=== PATIENT | female | born 1985 | race Caucasian/White ===

== ENCOUNTER 2016-11-22 15:24 | Inpatient (IN) | payer BC, OTHER ==
[~2016-11-22] VITALS: Ht 165.1 cm; Wt 95.0 kg
[~2016-11-22 15:24] MED LIST: CHOL10003 PO; RANI150T4 PO
[2016-11-25] MEDS ORDERED: OXYTOCIN 30U/ 0.9% NaCL 500ML 500 ML IV PRN (15:30)
[2016-11-25] MEDS ORDERED: FENTANYL PF 100 MCG/2ML IVPush PRN (15:30)
[2016-11-25] MEDS ORDERED: OXYTOCIN 30U/ 0.9% NaCL 500ML 500 ML IV ONE (15:30)
[2016-11-25] MEDS ORDERED: D5%-LACTATED RINGERS 1,000 ML IV SCH (15:30)
[2016-11-25] MEDS ORDERED: PLEASE ENTER HEIGHT AND WEIGHT MC SCH (16:00)
[2016-11-25] MEDS ORDERED: NEWBORN KIT ONE (16:07)
[2016-11-25] MEDS ORDERED: OXYTOCIN 30U/ 0.9% NaCL 500ML 500 ML ONE (16:08)
[2016-11-25] MEDS: LACTATED RINGERS 1,000 ML IV SCH ×4 (16:22→20:38)
[2016-11-25 16:42] VITALS: BP 137/84
[2016-11-25] MEDS ORDERED: FENTANYL/BUPIV./NS/PF 250 ML EPIDCONT ONE (17:39)
[2016-11-25] MEDS ORDERED: FENTANYL PF 100 MCG/2ML ONE (17:39)
[2016-11-25] MEDS ORDERED: BUPIVACAINE 0.25% ONE (17:40)
[2016-11-25] MEDS ORDERED: TERBUTALINE 1 MG/ML, 1ML ONE (19:28)
[2016-11-25] MEDS ORDERED: EPHEDRINE 50 MG/ML, 1ML ONE (19:29)
[2016-11-25] MEDS ORDERED: LACTATED RINGERS 1,000 ML INTUTE SCH (21:00)
[2016-11-25] MEDS ORDERED: LACTATED RINGERS 1,000 ML INTUTE PRN (21:00)
[2016-11-25] MEDS ORDERED: FENTANYL/BUPIV./NS/PF 250 ML EPIDCONT SCH (23:45)
[2016-11-26] MEDS ORDERED: LACTATED RINGERS 1,000 ML IVBOLUS PRN
[2016-11-26] MEDS ORDERED: ONDANSETRON 2MG/ML, 2ML ONE (00:46)
[2016-11-26] MEDS ORDERED: ONDANSETRON 2MG/ML, 2ML IVPush PRN (01:00)
[2016-11-26] MEDS ORDERED: OXYTOCIN 30U/ 0.9% NaCL 500ML 500 ML ONE (01:57)
[2016-11-26] MEDS ORDERED: MAGNESIUM HYDROXIDE 8%, 30ML UDC PO PRN (02:00)
[2016-11-26] MEDS ORDERED: RHOGAM FROM BLOOD BANK 1 NOTE EA IM/IV ONE (02:00)
[2016-11-26] MEDS ORDERED: MEASLES,MUMPS&RUBELLA VACC/PF 0.5 ML SQ PRN (02:00)
[2016-11-26] MEDS ORDERED: ONDANSETRON 2MG/ML, 2ML IV PRN (02:00)
[2016-11-26] MEDS ORDERED: ACETAMINOPHEN 325 MG TABLET PO PRN ×2 (02:00)
[2016-11-26] MEDS ORDERED: OXYcodone/APAP 5/325MG TABLET PO PRN (02:00)
[2016-11-26] MEDS ORDERED: MISOPROSTOL 200 MCG TABLET PR PRN (02:00)
[2016-11-26] MEDS ORDERED: CALCIUM CARBONATE 500 MG TAB.CHEW PO PRN (02:00)
[2016-11-26] MEDS ORDERED: DIPH,PERTUSS(ACELL),TET VAC/PF NC IM-VACC PRN (02:00)
[2016-11-26] MEDS: OXYTOCIN 30U/ 0.9% NaCL 500ML 500 ML IV SCH ×3 (02:02→20:56)
[2016-11-26] MEDS: LACTATED RINGERS 1,000 ML IV SCH ×4 (02:03→23:45)
[2016-11-26] MEDS ORDERED: IBUPROFEN 600 MG TABLET ONE (02:11)
[2016-11-26] MEDS: IBUPROFEN 600 MG TABLET PO PRN ×4 (03:07→23:20)
[2016-11-26 03:45] VITALS: BP 130/82
[2016-11-26 07:54] VITALS: BP 130/86
[2016-11-26] MEDS ORDERED: PRENATAL VIT/IRON/FA 1 EACH TABLET PO SCH (09:00)
[2016-11-26] MEDS: DOCUSATE 100 MG CAPSULE PO PRN ×2 (10:01→23:19)
[2016-11-26] MEDS: OXYcodone/APAP 5/325MG TABLET PO PRN ×3 (10:01→23:20)
[2016-11-26 11:18] VITALS: BP 129/84
[2016-11-26 15:45] VITALS: BP 128/84
[2016-11-26 19:50] VITALS: BP 123/83
[2016-11-27] MEDS: LACTATED RINGERS 1,000 ML IV SCH (00:17)
[2016-11-27 00:30] VITALS: BP 129/88
[2016-11-27] MEDS ORDERED: OXYC-302 PO (05:15)
[2016-11-27] MEDS ORDERED: IBUP-1222 PO (05:16)
[2016-11-27 08:00] VITALS: BP 136/95
== END 2016-11-27 10:28 | disposition home or self-care (01) | DRG 775 ==
LOC: LDIP 11-25 15:02 → 2NW 11-26 03:45
PROVIDERS: ADMIT Obstetrics & Gynecology; ATTEND Obstetrics & Gynecology
PROC: 10E0XZZ Delivery of Products of Conception, External Approach (ICD-10-PCS; principal; 2016-11-26)
PROC: 10907ZC Drainage of Amniotic Fluid, Therapeutic from Products of Conception, Via Natural or Artificial Opening (ICD-10-PCS; 2016-11-26)
PROC: 0HQ9XZZ Repair Perineum Skin, External Approach (ICD-10-PCS; 2016-11-26)
PROC: 3E0R3CZ (ICD-10-PCS; 2016-11-26)
PROC: 00HU33Z Insertion of Infusion Device into Spinal Canal, Percutaneous Approach (ICD-10-PCS; 2016-11-26)
PROC: 3E0E7GC Introduction of Other Therapeutic Substance into Products of Conception, Via Natural or Artificial Opening (ICD-10-PCS; 2016-11-26)
PROC: 3E033VJ Introduction of Other Hormone into Peripheral Vein, Percutaneous Approach (ICD-10-PCS; 2016-11-26)
DX: O76 Abnormality in fetal heart rate and rhythm complicating labor and delivery (principal); O69.1XX0 Labor and delivery complicated by cord around neck, with compression, not applicable or unspecified; O26.53 Maternal hypotension syndrome, third trimester; Z3A.39 39 weeks gestation of pregnancy; Z37.0 Single live birth; O70.0 First degree perineal laceration during delivery
CPT/HCPCS: 36415; 82803; 85025; 86850; 86900; J2405; J2590; J3010; J7120; J7121

== ENCOUNTER 2018-11-19 14:36 | Outpatient (CLI) | payer OTHER ==
[~2018-11-19] VITALS: Ht 165.1 cm; Wt 97.7 kg
[~2018-11-19 14:36] MED LIST changes: +IBUP-1222 PO; +OXYC-302 PO
[2018-11-19 14:51] VITALS: BP 118/81
[2018-11-19 15:19] LABS: BASOPHILS # (AUTO) 0.01 x10^3/uL (0-0.1); BASOPHILS % (AUTO) 0 % (0-1); EOSINOPHILS # (AUTO) 0.04 x10^3/uL (0-0.4); EOSINOPHILS % (AUTO) 1 % (1-7); LYMPHOCYTES % (AUTO) 17 % (22-44); MD NO; MEAN CORPUSCULAR HEMOGLOBIN 26.9 pg (27.0-34.8); MEAN CORPUSCULAR VOLUME 81.8 fL (80-100); MEAN PLATELET VOLUME 8.4 fL (7.4-10.4); MONOCYTES # (AUTO) 0.28 x10^3/uL (0.2-0.8); MONOCYTES % (AUTO) 6 % (2-9); NEUTROPHILS # (AUTO) 3.46 x10^3/uL (1.8-6.8); NEUTROPHILS % (AUTO) 75 % (42-75); PLATELET COUNT 210 x10^3/uL (130-400); RED BLOOD COUNT 4.49 x10^6/uL (3.82-5.3); RED CELL DISTRIBUTION WIDTH 14.2 % (9.6-15.2)
[2018-11-19 15:22] LABS: MICROSCOPIC INDICATED
[2018-11-19 15:30] LABS: ALANINE AMINOTRANSFERASE 13 U/L (12-78); ALBUMIN 2.8 g/dL (3.4-5.0); ANION GAP 8 mmol/L (5-15); CHLORIDE 110 mmol/L (98-107); CREATININE 0.69 mg/dL (0.55-1.02)
[2018-11-19 15:32] LABS: ALKALINE PHOSPHATASE 98 U/L (45-117); BILIRUBIN,TOTAL 0.4 mg/dL (0.2-1.0)
== END 2018-11-19 17:08 | disposition home or self-care (01) ==
LOC: LDOP 14:36
PROVIDERS: ATTEND Obstetrics & Gynecology
DX: O13.3 Gestational [pregnancy-induced] hypertension without significant proteinuria, third trimester (principal); Z3A.36 36 weeks gestation of pregnancy
CPT/HCPCS: 36415; 59025; 80053; 81001; 82570; 84156; 84550; 85025; G0463

== ENCOUNTER 2018-11-21 02:31 | Observation (INO) | payer OTHER ==
[~2018-11-21] VITALS: Ht 165.1 cm; Wt 98.0 kg
[2018-11-21] MEDS ORDERED: LACTATED RINGERS 1,000 ML IV SCH ×3 (02:49→06:49)
[2018-11-21] MEDS ORDERED: OXYTOCIN 30U/ 0.9% NaCL 500ML 500 ML ONE ×2 (02:49→06:22)
[2018-11-21] MEDS ORDERED: OXYTOCIN 30U/ 0.9% NaCL 500ML 500 ML IV ONE (02:49)
[2018-11-21] MEDS ORDERED: D5%-LACTATED RINGERS 1,000 ML IV SCH (02:49)
[2018-11-21] MEDS ORDERED: NEWBORN KIT ONE (02:50)
[2018-11-21] MEDS ORDERED: MISOPROSTOL 200 MCG TABLET ONE (02:50)
[2018-11-21] MEDS ORDERED: LIDOCAINE 1%, 20ML ONE (02:50)
[2018-11-21] MEDS ORDERED: ONDANSETRON 2MG/ML, 2ML IVPush PRN (03:00)
[2018-11-21] MEDS ORDERED: FENTANYL PF 100 MCG/2ML IVPush PRN (03:00)
[2018-11-21] MEDS ORDERED: FENTANYL PF 100 MCG/2ML IV PRN (03:00)
[2018-11-21] MEDS ORDERED: CALCIUM CARBONATE 500 MG TAB.CHEW PO PRN (03:00)
[2018-11-21] MEDS ORDERED: TERBUTALINE 1 MG/ML, 1ML IVPush PRN (03:00)
[2018-11-21] MEDS ORDERED: FENTANYL/BUPIV./NS/PF 250 ML EPIDCONT SCH (03:04)
[2018-11-21] MEDS ORDERED: FENTANYL PF 100 MCG/2ML ONE (03:06)
[2018-11-21] MEDS ORDERED: BUPIVACAINE 0.25% ONE (03:21)
[2018-11-21 03:27] LABS: BASOPHILS # (AUTO) 0.02 x10^3/uL (0-0.1); BASOPHILS % (AUTO) 0 % (0-1); EOSINOPHILS # (AUTO) 0.05 x10^3/uL (0-0.4); EOSINOPHILS % (AUTO) 1 % (1-7); LYMPHOCYTES # (AUTO) 1.35 x10^3/uL (1-3.4); LYMPHOCYTES % (AUTO) 28 % (22-44); MD NO; MEAN CORPUSCULAR HEMOGLOBIN 27.7 pg (27.0-34.8); MEAN CORPUSCULAR HGB CONC 33.9 g/dL (32.4-35.8); MEAN CORPUSCULAR VOLUME 81.7 fL (80-100); MEAN PLATELET VOLUME 8.9 fL (7.4-10.4); MONOCYTES # (AUTO) 0.32 x10^3/uL (0.2-0.8); MONOCYTES % (AUTO) 7 % (2-9); NEUTROPHILS # (AUTO) 3.11 x10^3/uL (1.8-6.8); NEUTROPHILS % (AUTO) 64 % (42-75); PLATELET COUNT 213 x10^3/uL (130-400); RED BLOOD COUNT 4.68 x10^6/uL (3.82-5.3); RED CELL DISTRIBUTION WIDTH 14.5 % (9.6-15.2)
[2018-11-21] MEDS ORDERED: FENTANYL PF 500 MCG, BUPIVACAINE/PF 0.5%, 30ML 62.5 ML in SODIUM CHLORIDE 0.9% 177.5 ML EPIDCONT SCH (03:30)
[2018-11-21] MEDS ORDERED: EPHEDRINE 50 MG/ML, 1ML IVPush PRN (03:30)
[2018-11-21] MEDS ORDERED: LACTATED RINGERS 1,000 ML IVBOLUS PRN (03:30)
[2018-11-21 04:13] LABS: CHLORIDE 112 mmol/L (98-107)
[2018-11-21 04:20] LABS: ALANINE AMINOTRANSFERASE 15 U/L (12-78); ALBUMIN 2.8 g/dL (3.4-5.0); ALKALINE PHOSPHATASE 104 U/L (45-117); ANION GAP 9 mmol/L (5-15); BILIRUBIN,TOTAL 0.4 mg/dL (0.2-1.0); CALCIUM 8.4 mg/dL (8.5-10.1); CREATININE 0.66 mg/dL (0.55-1.02); TOTAL PROTEIN 7.1 g/dL (6.4-8.2)
[2018-11-21] MEDS: OXYTOCIN 30U/ 0.9% NaCL 500ML 500 ML IV SCH ×2 (06:49→16:49)
[2018-11-21] MEDS: LACTATED RINGERS 1,000 ML IV SCH ×2 (06:49→17:15)
[2018-11-21] MEDS ORDERED: MISOPROSTOL 200 MCG TABLET PR PRN (07:00)
[2018-11-21] MEDS ORDERED: BISACODYL 10 MG SUPP PR PRN (07:00)
[2018-11-21] MEDS ORDERED: ONDANSETRON 2MG/ML, 2ML IV PRN (07:00)
[2018-11-21] MEDS ORDERED: OXYcodone/APAP 5/325MG TABLET PO PRN (07:00)
[2018-11-21] MEDS ORDERED: ACETAMINOPHEN 325 MG TABLET PO PRN (07:00)
[2018-11-21 08:20] VITALS: BP 122/63
[2018-11-21] MEDS: PRENATAL VIT/IRON/FA 1 EACH TABLET PO SCH (09:00)
[2018-11-21] MEDS: OXYcodone/APAP 5/325MG TABLET PO PRN ×3 (12:24→21:33)
[2018-11-21] MEDS: IBUPROFEN 600 MG TABLET PO PRN ×2 (12:24→20:40)
[2018-11-21 14:03] VITALS: BP 125/82
[2018-11-21 19:15] VITALS: BP 131/86
[2018-11-21] MEDS: DOCUSATE 100 MG CAPSULE PO PRN (20:40)
[2018-11-21 22:02] LABS: BASOPHILS # (AUTO) 0.04 x10^3/uL (0-0.1); BASOPHILS % (AUTO) 1 % (0-1); EOSINOPHILS # (AUTO) 0.06 x10^3/uL (0-0.4); EOSINOPHILS % (AUTO) 1 % (1-7); LYMPHOCYTES # (AUTO) 1.44 x10^3/uL (1-3.4); LYMPHOCYTES % (AUTO) 24 % (22-44); MD NO; MEAN CORPUSCULAR HEMOGLOBIN 27.9 pg (27.0-34.8); MEAN CORPUSCULAR HGB CONC 33.9 g/dL (32.4-35.8); MEAN CORPUSCULAR VOLUME 82.3 fL (80-100); MEAN PLATELET VOLUME 8.5 fL (7.4-10.4); MONOCYTES # (AUTO) 0.38 x10^3/uL (0.2-0.8); MONOCYTES % (AUTO) 6 % (2-9); NEUTROPHILS # (AUTO) 4.22 x10^3/uL (1.8-6.8); NEUTROPHILS % (AUTO) 69 % (42-75); PLATELET COUNT 184 x10^3/uL (130-400); RED BLOOD COUNT 3.79 x10^6/uL (3.82-5.3); RED CELL DISTRIBUTION WIDTH 14.3 % (9.6-15.2)
[2018-11-22] VITALS: BP 128/87
[2018-11-22] MEDS: LACTATED RINGERS 1,000 ML IV SCH ×2 (02:49→12:49)
[2018-11-22] MEDS: OXYTOCIN 30U/ 0.9% NaCL 500ML 500 ML IV SCH ×2 (02:49→12:49)
[2018-11-22 03:48] VITALS: BP 122/85
[2018-11-22 08:45] VITALS: BP 127/89
[2018-11-22] MEDS: IBUPROFEN 600 MG TABLET PO PRN ×2 (08:58→18:37)
[2018-11-22] MEDS: DOCUSATE 100 MG CAPSULE PO PRN (08:58)
[2018-11-22] MEDS: OXYcodone/APAP 5/325MG TABLET PO PRN ×3 (08:58→18:37)
[2018-11-22] MEDS: PRENATAL VIT/IRON/FA 1 EACH TABLET PO SCH (09:00)
[2018-11-22] MEDS ORDERED: IBUP-1222 PO (10:47)
[2018-11-22] MEDS ORDERED: OXYC-302 PO (10:47)
== END 2018-11-22 18:55 | disposition home or self-care (01) ==
LOC: LDOP 02:31 → INTOOBSV 02:55 → LDIP 02:55 → 2NW 08:12
PROVIDERS: ADMIT Obstetrics & Gynecology; ATTEND Obstetrics & Gynecology
DX: O60.14X0 Preterm labor third trimester with preterm delivery third trimester, not applicable or unspecified (principal); Z37.0 Single live birth; O13.4 Gestational [pregnancy-induced] hypertension without significant proteinuria, complicating childbirth; O62.3 Precipitate labor; Z3A.36 36 weeks gestation of pregnancy
CPT/HCPCS: 36415; 59409; 80053; 82803; 84550; 85025; 86850; 86900; 96365; 96366; 96375; G0378; J2590; J3010; J7120; J7121

== ENCOUNTER 2020-09-04 10:05 | Outpatient (CLI) | payer OTHER ==
[~2020-09-04] VITALS: Ht 165.1 cm; Wt 97.7 kg
[~2020-09-04 10:05] MED LIST changes: -OXYC-302 PO; +OXYC1TAB14 PO
[2020-09-04 10:14] VITALS: BP 104/73
== END 2020-09-04 10:45 | disposition home or self-care (01) ==
LOC: LDOP 10:05
PROVIDERS: ATTEND Obstetrics & Gynecology
DX: Z34.93 Encounter for supervision of normal pregnancy, unspecified, third trimester (principal); Z3A.34 34 weeks gestation of pregnancy
CPT/HCPCS: 59025; 99211; G0463

== ENCOUNTER → 2020-09-21 | Outpatient (CLI) | payer SELFPAY | END | disposition home or self-care (01) | LOC: COVVAC 10:38 | PROVIDERS: ATTEND Obstetrics & Gynecology | DX: Z20.822 Contact with and (suspected) exposure to COVID-19 (principal) | CPT/HCPCS: U0003 ==

== ENCOUNTER 2020-09-23 14:50 | Inpatient (IN) | payer OTHER ==
[~2020-09-23] VITALS: Ht 165.1 cm; Wt 99.0 kg
[2020-09-24] MEDS ORDERED: ALUMINUM/MAG/SIMETHICONE 30 ML UDC PO PRN (22:30)
[2020-09-24] MEDS ORDERED: SODIUM CHLORIDE FLUSH 10ML SYR IVF PRN (22:30)
[2020-09-24] MEDS ORDERED: TERBUTALINE 1 MG/ML, 1ML IVPush PRN (22:30)
[2020-09-24] MEDS ORDERED: FENTANYL PF 100 MCG/2ML IVPush PRN (22:30)
[2020-09-24] MEDS ORDERED: FENTANYL PF 100 MCG/2ML IV PRN (22:30)
[2020-09-24] MEDS ORDERED: D5%-LACTATED RINGERS 1,000 ML IV SCH (22:30)
[2020-09-24] MEDS ORDERED: TERBUTALINE 1 MG/ML, 1ML SQ PRN (22:30)
[2020-09-24] MEDS ORDERED: PLEASE ENTER HEIGHT AND WEIGHT MC SCH (22:30)
[2020-09-24] MEDS ORDERED: MISOPROSTOL 25 MCG TABLET PO PRN (22:30)
[2020-09-24] MEDS ORDERED: MISOPROSTOL 25 MCG TABLET VG PRN ×2 (22:30)
[2020-09-24] MEDS ORDERED: OXYTOCIN 30U/ 0.9% NaCL 500ML 500 ML IV PRN (22:30)
[2020-09-24] MEDS ORDERED: OXYTOCIN 30U/ 0.9% NaCL 500ML 500 ML IV ONE (22:30)
[2020-09-24] MEDS ORDERED: SODIUM CITRATE/CITRIC ACID 30 ML UDC PO PRN (22:30)
[2020-09-24] MEDS ORDERED: ONDANSETRON 2MG/ML, 2ML IVPush PRN (22:30)
[2020-09-24] MEDS ORDERED: METOCLOPRAMIDE 5 MG/ML, 2ML IVPush PRN (22:30)
[2020-09-24 23:07] LABS: BASOPHILS % (AUTO) 1 % (0-1); EOSINOPHILS % (AUTO) 1 % (1-7); LYMPHOCYTES % (AUTO) 24 % (22-44); MEAN CORPUSCULAR HEMOGLOBIN 24.9 pg (27.0-34.8); MEAN CORPUSCULAR HGB CONC 33.1 g/dL (32.4-35.8); MONOCYTES % (AUTO) 5 % (2-9); NEUTROPHILS % (AUTO) 70 % (42-75); PLATELET COUNT 215 x10^3/uL (130-400); RED BLOOD COUNT 4.48 x10^6/uL (3.82-5.3); RED CELL DISTRIBUTION WIDTH 16.3 % (9.6-15.2)
[2020-09-24 23:10] LABS: MD NO
[2020-09-24 23:13] LABS: ALANINE AMINOTRANSFERASE 13 U/L (12-78); ALBUMIN 2.8 g/dL (3.4-5.0); ANION GAP 8 mmol/L (5-15); CALCIUM 8.7 mg/dL (8.5-10.1); CHLORIDE 110 mmol/L (98-107); CREATININE 0.93 mg/dL (0.55-1.02)
[2020-09-24 23:15] LABS: ALKALINE PHOSPHATASE 103 U/L (45-117); BILIRUBIN, DIRECT < 0.1 mg/dL (0.1-0.2); BILIRUBIN,TOTAL 0.3 mg/dL (0.2-1.0); TOTAL PROTEIN 6.9 g/dL (6.4-8.2)
[2020-09-25] MEDS ORDERED: hydrALAzine 20 MG/ML, 1ML ONE (01:49)
[2020-09-25] MEDS ORDERED: hydrALAzine 20 MG/ML, 1ML IVPush ONE ×2 (02:00)
[2020-09-25] MEDS: LACTATED RINGERS 1,000 ML IVBOLUS PRN ×2 (02:00→03:00)
[2020-09-25] MEDS ORDERED: LABETALOL 5MG/ML, 20ML IVPush ONE (02:00)
[2020-09-25] MEDS ORDERED: BUPIVACAINE 0.25% ONE (02:31)
[2020-09-25] MEDS ORDERED: FENTANYL/BUPIV./NS/PF 250 ML EPIDCONT SCH (03:00)
[2020-09-25] MEDS ORDERED: EPHEDRINE 50 MG/ML, 1ML IVPush PRN (03:00)
[2020-09-25] MEDS ORDERED: OXYTOCIN 30U/ 0.9% NaCL 500ML 500 ML ONE ×2 (03:09→19:43)
[2020-09-25] MEDS ORDERED: MISOPROSTOL 200 MCG TABLET ONE (03:10)
[2020-09-25] MEDS ORDERED: ONDANSETRON 2MG/ML, 2ML ONE (03:22)
[2020-09-25] MEDS: LACTATED RINGERS 1,000 ML IV SCH ×3 (04:07→16:44)
[2020-09-25] MEDS ORDERED: OXYTOCIN 30U/ 0.9% NaCL 500ML 500 ML IV PRN (08:30)
[2020-09-25] MEDS ORDERED: ACETAMINOPHEN 325 MG TABLET ONE ×2 (09:27→16:07)
[2020-09-25] MEDS ORDERED: LIDOCAINE 1%, 20ML ONE (09:27)
[2020-09-25] MEDS: ACETAMINOPHEN 325 MG TABLET PO PRN ×2 (09:30→16:09)
[2020-09-25] MEDS ORDERED: SODIUM CITRATE/CITRIC ACID 15 ML UDC ONE (10:00)
[2020-09-25] MEDS ORDERED: METOCLOPRAMIDE 5 MG/ML, 2ML ONE (10:00)
[2020-09-25] MEDS ORDERED: SODIUM BICARBONATE 1 MEQ/ML, 50ML VIAL ONE (10:11)
[2020-09-25] MEDS ORDERED: LIDOCAINE/MPF 2%-EPI 1:200K, 20 ML ONE (10:11)
[2020-09-25] MEDS ORDERED: CEFAZOLIN 1,000 MG ONE ×2 (10:11)
[2020-09-25] MEDS ORDERED: OXYTOCIN 10 UNITS/ML, 1ML ONE ×4 (10:11)
[2020-09-25] MEDS ORDERED: LACTATED RINGERS 1,000 ML INTUTE PRN (10:30)
[2020-09-25] MEDS ORDERED: LACTATED RINGERS 1,000 ML INTUTE SCH (10:30)
[2020-09-25 12:44] LABS: BASOPHILS % (AUTO) 0 % (0-1); EOSINOPHILS % (AUTO) 0 % (1-7); LYMPHOCYTES % (AUTO) 9 % (22-44); MEAN CORPUSCULAR HEMOGLOBIN 24.7 pg (27.0-34.8); MEAN CORPUSCULAR HGB CONC 32.8 g/dL (32.4-35.8); MEAN PLATELET VOLUME 8.8 fL (7.4-10.4); MONOCYTES % (AUTO) 4 % (2-9); NEUTROPHILS % (AUTO) 88 % (42-75); PLATELET COUNT 207 x10^3/uL (130-400); RED BLOOD COUNT 3.94 x10^6/uL (3.82-5.3); RED CELL DISTRIBUTION WIDTH 16.5 % (9.6-15.2)
[2020-09-25 12:49] LABS: INTERNATIONAL NORMALIZED RATIO 1.07 (0.93-1.1); PROTHROMBIN TIME 11.4 Seconds (9.6-11.5)
[2020-09-25 12:52] LABS: MD NO
[2020-09-25] MEDS ORDERED: ONDANSETRON 2MG/ML, 2ML IV PRN (18:30)
[2020-09-25] MEDS ORDERED: ACETAMINOPHEN 325 MG TABLET PO PRN ×2 (18:30)
[2020-09-25] MEDS ORDERED: MAGNESIUM HYDROXIDE 8%, 30ML UDC PO PRN (18:30)
[2020-09-25] MEDS ORDERED: DIPH,PERTUSS(ACELL),TET VAC/PF NC IM-VACC PRN (18:30)
[2020-09-25] MEDS ORDERED: MISOPROSTOL 200 MCG TABLET PR PRN (18:30)
[2020-09-25] MEDS ORDERED: OXYcodone/APAP 5/325MG TABLET PO PRN (18:30)
[2020-09-25] MEDS ORDERED: SIMETHICONE 80 MG CHEW TAB PO PRN (18:30)
[2020-09-25] MEDS: OXYTOCIN 30U/ 0.9% NaCL 500ML 500 ML IV SCH (18:30)
[2020-09-25] MEDS ORDERED: RHOGAM FROM BLOOD BANK 1 NOTE EA IM/IV ONE (18:30)
[2020-09-25] MEDS ORDERED: DOCUSATE 100 MG CAPSULE PO PRN (18:30)
[2020-09-25] MEDS ORDERED: MAGNESIUM SULFATE PMX 4GM/100M 100 ML IVPB ONE (19:00)
[2020-09-25] MEDS ORDERED: MAGNESIUM SULFATE PMX 4GM/100M 100 ML ONE (19:16)
[2020-09-25] MEDS ORDERED: MAGNESIUM SULF. PMX 20GM/500ML 500 ML IV ONE (19:16)
[2020-09-25] MEDS: MAGNESIUM SULF. PMX 20GM/500ML 500 ML IV SCH (20:07)
[2020-09-25] MEDS ORDERED: OXYcodone/APAP 5/325MG TABLET ONE (21:24)
[2020-09-25] MEDS ORDERED: IBUPROFEN 600 MG TABLET ONE (21:24)
[2020-09-25] MEDS: OXYcodone/APAP 5/325MG TABLET PO PRN (21:29)
[2020-09-25] MEDS: IBUPROFEN 600 MG TABLET PO PRN (21:30)
[2020-09-26] MEDS ORDERED: OXYcodone/APAP 5/325MG TABLET ONE ×4 (02:17→15:07)
[2020-09-26] MEDS: OXYcodone/APAP 5/325MG TABLET PO PRN ×5 (02:19→21:15)
[2020-09-26 02:21] LABS: BASOPHILS % (AUTO) 0 % (0-1); EOSINOPHILS % (AUTO) 0 % (1-7); LYMPHOCYTES % (AUTO) 12 % (22-44); MEAN CORPUSCULAR HGB CONC 32.7 g/dL (32.4-35.8); MEAN PLATELET VOLUME 8.5 fL (7.4-10.4); MONOCYTES % (AUTO) 6 % (2-9); NEUTROPHILS % (AUTO) 81 % (42-75); PLATELET COUNT 170 x10^3/uL (130-400); RED BLOOD COUNT 3.23 x10^6/uL (3.82-5.3); RED CELL DISTRIBUTION WIDTH 16.6 % (9.6-15.2)
[2020-09-26 02:25] LABS: MD NO
[2020-09-26] MEDS: OXYTOCIN 30U/ 0.9% NaCL 500ML 500 ML IV SCH ×2 (04:30→14:30)
[2020-09-26] MEDS ORDERED: MAGNESIUM SULF. PMX 20GM/500ML 500 ML IV ONE ×2 (06:03→16:24)
[2020-09-26] MEDS: MAGNESIUM SULF. PMX 20GM/500ML 500 ML IV SCH ×2 (06:19→16:29)
[2020-09-26] MEDS ORDERED: IBUPROFEN 600 MG TABLET ONE ×2 (07:08→15:07)
[2020-09-26] MEDS: IBUPROFEN 600 MG TABLET PO PRN ×3 (07:11→21:14)
[2020-09-26] MEDS: PRENATAL VIT/IRON/FA 1 EACH TABLET PO SCH (09:00)
[2020-09-26 09:34] VITALS: BP 134/88
[2020-09-26] MEDS: LACTATED RINGERS 1,000 ML IV SCH (16:28)
[2020-09-26 17:28] VITALS: BP 121/77
[2020-09-26 21:00] VITALS: BP 133/91
[2020-09-27 00:14] VITALS: BP 135/87
[2020-09-27] MEDS: OXYTOCIN 30U/ 0.9% NaCL 500ML 500 ML IV SCH (00:30)
[2020-09-27] MEDS: OXYcodone/APAP 5/325MG TABLET PO PRN (04:10)
[2020-09-27] MEDS: IBUPROFEN 600 MG TABLET PO PRN (04:10)
[2020-09-27 04:13] VITALS: BP 135/94
[2020-09-27 06:37] VITALS: BP 146/88
[2020-09-27] MEDS ORDERED: OXYC1TAB14 PO (06:37)
[2020-09-27] MEDS ORDERED: IBUP-1222 PO (06:37)
[2020-09-27] MEDS: PRENATAL VIT/IRON/FA 1 EACH TABLET PO SCH (09:00)
== END 2020-09-27 09:45 | disposition home or self-care (01) | DRG 807 ==
LOC: LDIP 09-24 21:57 → 2NE 09-25 21:59 → 2NW 09-26 22:00
PROVIDERS: ADMIT Obstetrics & Gynecology; ATTEND Obstetrics & Gynecology
PROC: 10E0XZZ Delivery of Products of Conception, External Approach (ICD-10-PCS; principal; 2020-09-25)
PROC: 3E0R3BZ Introduction of Anesthetic Agent into Spinal Canal, Percutaneous Approach (ICD-10-PCS; 2020-09-25)
PROC: 00HU33Z Insertion of Infusion Device into Spinal Canal, Percutaneous Approach (ICD-10-PCS; 2020-09-25)
PROC: 10907ZC Drainage of Amniotic Fluid, Therapeutic from Products of Conception, Via Natural or Artificial Opening (ICD-10-PCS; 2020-09-25)
PROC: 10H07YZ Insertion of Other Device into Products of Conception, Via Natural or Artificial Opening (ICD-10-PCS; 2020-09-25)
PROC: 3E033VJ Introduction of Other Hormone into Peripheral Vein, Percutaneous Approach (ICD-10-PCS; 2020-09-25)
DX: O13.4 Gestational [pregnancy-induced] hypertension without significant proteinuria, complicating childbirth (principal); Z37.0 Single live birth; O24.429 Gestational diabetes mellitus in childbirth, unspecified control; O43.123 Velamentous insertion of umbilical cord, third trimester; O69.81X0 Labor and delivery complicated by cord around neck, without compression, not applicable or unspecified; Z3A.37 37 weeks gestation of pregnancy
CPT/HCPCS: 36415; 80053; 82248; 82570; 82962; 83735; 84156; 84550; 85025; 85384; 85610; 85730; 86592; 86850; 86900; 86923; G0378; J0690; J2405; J0360; J2590; J3010; J3475; J7120